=== PATIENT | female | born 1990 | race Hispanic/Latino ===

== ENCOUNTER 2017-06-03 10:28 | Emergency (ER) | payer MEDICAID, OTHER ==
[2017-06-03 10:50] LABS: APPEARANCE,URINE Clear (CLEAR); BILIRUBIN,URINE Negative (NEGATIVE); COLOR,URINE Yellow (YELLOW); GLUCOSE, URINE (UA) Negative (NEGATIVE); KETONES,URINE Negative (NEGATIVE); LEUKOCYTE ESTERASE ,URINE Small (NEGATIVE); NITRATE,URINE Negative (NEGATIVE); OCCULT BLOOD,URINE Negative (NEGATIVE); PH,URINE 6.5 (5.0-8.0); PROTEIN,URINE Negative (NEGATIVE); UROBILINOGEN,URINE 0.2 mg/dL (0.2-1.0)
[2017-06-03 11:04] LABS: BASOPHILS % (AUTO) 0.4 % (0.0-5.0); EOSINOPHILS % (AUTO) 0.3 % (0.0-8.0); HEMATOCRIT 42.3 % (36-48); LYMPHOCYTES % (AUTO) 20.4 % (21.0-51.0); MEAN CORPUSCULAR HEMOGLOBIN 29.7 pg (27.0-33.0); MEAN CORPUSCULAR HGB CONC 33.6 g/dL (32.0-36.0); MEAN CORPUSCULAR VOLUME 88.2 fL (79-99); MONOCYTES % (AUTO) 6.5 % (3.0-13.0); NEUTROPHILS % (AUTO) 72.4 % (40.0-77.0); PLATELET COUNT (AUTO) 235 K/uL (130-400); RED CELL DISTRIBUTION WIDTH 13.9 % (11.0-15.5); WHITE BLOOD COUNT (AUTO) 11.5 K/uL (4.8-10.8)
[2017-06-03 11:05] LABS: BACTERIA,URINE Rare /HPF (None Seen); RBC,URINE 0-1 /HPF (0-1); SQUAMOUS EPITHELIAL CELL,UR Few /LPF (0-2); WBC,URINE 0-1 /HPF (0-1)
[2017-06-03 11:14] LABS: CREATININE 0.5 mg/dL (0.5-1.5); POTASSIUM 3.5 mmol/L (3.5-5.1)
== END 2017-06-03 12:05 | disposition home or self-care (01) ==
LOC: EDH 10:28
DX: O20.0 Threatened abortion (principal); Z3A.08 8 weeks gestation of pregnancy
CPT/HCPCS: 36415; 76817; 80048; 81001; 84702; 85025; 86900; 86901

== ENCOUNTER 2020-09-02 17:04 | Emergency (ER) | payer MEDICAID ==
[2020-09-02] MEDS ORDERED: KETOROLAC TROMETHAMINE 60 MG/2 ML VIAL ONE (18:06)
== END 2020-09-02 19:11 | disposition home or self-care (01) ==
LOC: EDH 17:04
DX: S40.012A Contusion of left shoulder, initial encounter (principal); Z98.890 Other specified postprocedural states; V49.49XA Driver injured in collision with other motor vehicles in traffic accident, initial encounter; Y93.9 Activity, unspecified; Y92.488 Other paved roadways as the place of occurrence of the external cause; Y99.8 Other external cause status
CPT/HCPCS: 73010; 73030; 81025; 96372; 99284; J1885

== ENCOUNTER 2021-02-21 20:37 | Emergency (ER) | payer SELFPAY ==
[~2021-02-21] VITALS: Ht 157.5 cm; Wt 91.2 kg
[2021-02-21 21:21] VITALS: BP 121/81
[2021-02-21 22:02] LABS: BASOPHILS % (AUTO) 0.5 % (0.0-5.0); EOSINOPHILS % (AUTO) 1.2 % (0.0-8.0); HEMATOCRIT 43.7 % (36-48); LYMPHOCYTES % (AUTO) 27.2 % (21.0-51.0); MEAN CORPUSCULAR HGB CONC 32.5 g/dL (32.0-36.0); MEAN CORPUSCULAR VOLUME 92.2 fL (79-99); MONOCYTES % (AUTO) 6.8 % (3.0-13.0); NEUTROPHILS % (AUTO) 64.1 % (40.0-77.0); PLATELET COUNT (AUTO) 276 K/uL (130-400); RED BLOOD CELL COUNT(AUTO) 4.74 MIL/uL (4.00-5.50); RED CELL DISTRIBUTION WIDTH 12.9 % (11.0-15.5); WHITE BLOOD COUNT (AUTO) 11.5 K/uL (4.8-10.8)
[2021-02-21 22:18] LABS: CREATININE 0.8 mg/dL (0.5-1.5)
[2021-02-21 22:22] LABS: ALBUMIN 3.9 g/dL (3.5-5.0); BILIRUBIN,TOTAL 0.3 mg/dL (0.2-1.0); TOTAL PROTEIN, SERUM 8.4 g/dL (6.0-8.3)
[2021-02-21] MEDS ORDERED: PANTOPRAZOLE 40 MG TAB DR PO SCH (22:30)
[2021-02-21] MEDS ORDERED: MAG/ALUM/SIMETH 30 ML UDCUP PO ONE (22:30)
[2021-02-21] MEDS ORDERED: LIDOCAINE HCL 2% VISCOUS 15 ML UDCUP PO ONE (22:30)
[2021-02-21] MEDS ORDERED: DICYCLOMINE HCL 10 MG/5 ML ML PO ONE (22:30)
[2021-02-21 22:49] VITALS: BP 116/84
[2021-02-21] MEDS ORDERED: FAMO-136 PO (22:50)
== END 2021-02-21 23:26 | disposition home or self-care (01) ==
LOC: EDH 20:37
DX: R07.89 Other chest pain (principal); T50.B95A Adverse effect of other viral vaccines, initial encounter; F41.9 Anxiety disorder, unspecified; K21.9 Gastro-esophageal reflux disease without esophagitis
CPT/HCPCS: 36415; 71046; 80053; 81025; 82550; 84484; 85025; 85378; 93005

== ENCOUNTER 2023-07-23 15:18 | Emergency (ER) | payer OTHER ==
[~2023-07-23] VITALS: Ht 157.5 cm; Wt 88.5 kg
[~2023-07-23 15:18] MED LIST: FAMO-136 PO
[2023-07-23 15:40] LABS: BASOPHILS # (AUTO) 0.03 K/uL (0.00-0.20); BASOPHILS % (AUTO) 0.4 % (0.0-5.0); EOSINOPHILS # (AUTO) 0.21 K/uL (0.00-0.70); EOSINOPHILS % (AUTO) 2.9 % (0.0-8.0); HEMATOCRIT 39.6 % (36-48); IMMATURE GRANULOCYTE ABSOLUTE 0.02 K/uL (0-1); LYMPHOCYTES % (AUTO) 27.8 % (21.0-51.0); MEAN CORPUSCULAR HEMOGLOBIN 29.5 pg (27.0-33.0); MEAN CORPUSCULAR HGB CONC 33.1 g/dL (32.0-36.0); MEAN CORPUSCULAR VOLUME 89.2 fL (79-99); MONOCYTES % (AUTO) 14.1 % (3.0-13.0); NEUTROPHILS # (AUTO) 3.9 K/uL (1.8-7.7); NEUTROPHILS % (AUTO) 54.5 % (40.0-77.0); PLATELET COUNT (AUTO) 248 K/uL (130-400); RED BLOOD CELL COUNT(AUTO) 4.44 MIL/uL (4.00-5.50); RED CELL DISTRIBUTION WIDTH 13.5 % (11.0-15.5); WHITE BLOOD COUNT (AUTO) 7.2 K/uL (4.8-10.8)
[2023-07-23 15:54] LABS: ALBUMIN 3.3 g/dL (3.5-5.0); BILIRUBIN,TOTAL 0.3 mg/dL (0.2-1.0); CREATININE 0.7 mg/dL (0.5-1.5); POTASSIUM 3.6 mmol/L (3.5-5.1); TOTAL PROTEIN, SERUM 7.6 g/dL (6.0-8.3)
[2023-07-23] MEDS: SOLU-MEDROL 125MG VIAL IM ONE (17:24)
[2023-07-23] MEDS: KETOROLAC 60 MG VIAL (30MG/ML) IM ONE (17:25)
[2023-07-23] MEDS ORDERED: METOCLOPRAMIDE 10 MG/2 ML VIAL IVP ONE (17:30)
[2023-07-23] MEDS ORDERED: FAMOTIDINE 20MG VIAL IV ONE (17:30)
[2023-07-23] MEDS ORDERED: ASPIRIN 325MG TAB PO ONE (17:30)
[2023-07-23] MEDS ORDERED: DEXAMETHASONE SOD PHOSPHATE 4 MG/ML 1ML VIAL IV ONE (17:30)
[2023-07-23] MEDS ORDERED: MORPHINE 4 MG SYG IVP ONE (17:30)
[2023-07-23] MEDS: ALBUTEROL 0.083% 2.5 MG/3 ML INH IH ONE (17:43)
[2023-07-23 17:44] VITALS: PULSE 78; RESP 18
[2023-07-23 18:14] VITALS: BP 131/82; PULSE 82; RESP 18; O2SAT 98
[2023-07-23] MEDS ORDERED: GUAI600T50 PO (18:26)
[2023-07-23] MEDS ORDERED: AUD IH (18:26)
== END 2023-07-23 19:00 | disposition home or self-care (01) ==
LOC: EDH 15:18
DX: R07.89 Other chest pain (principal); R09.81 Nasal congestion; Z79.899 Other long term (current) drug therapy; Z98.890 Other specified postprocedural states
CPT/HCPCS: 99285; 71045; 84484; 80053; 85025; 36415; 96372 ×2; 93005; 94640; J2930; J1885